=== PATIENT | male | born 1965 | race Caucasian/White ===

== ENCOUNTER 2025-06-20 11:55 | Outpatient (AMB) | payer OTHER, SELFPAY ==
[2025-06-20 13:08] VITALS: BP 130/74; PULSE 83; TEMP 36.9; O2SAT 99; BMI 29.9
--- NOTE | 2025-06-20 13:08 | AM.OFFWIN_ITS ---
Intake Vital Signs 06/20/25 13:08 Height 6 ft 1 in Weight 227 lb BMI 29.9 BP 130/74 Blood Pressure Location Lt brachial Position Sitting Pulse 83 Pulse Source Pulse Oximeter Temp 98.4 F Temp Source Oral Pulse Oximetry (%) 99 Oxygen Delivery Method Room Air Intake Visit Reasons: EP abdominal pain/ consistant diarrhea Intake Note: pt presents with loose diarrhea last night and this morning Allergies No Known Allergies Allergy (Verified 06/20/25 13:13) Do you need a note to return to daycare/school/sports/work: Yes HPI HPI Comments History of Present Illness Details 60 y/o Male patient who presents to the walk in clinic asking for Work Note. Pt did not go to work today due to Abdominal pain associated with Diarrhea since Last night. He has been managing his Symptoms at home with home remedies. Denies Fevers, Chills, Nausea or vomiting. [facility] Medical History (Updated 06/20/25 @ 18:07 by Ame Hui NP) Diarrhea Review of Systems Const All systems reviewed & are unremarkable except as noted in HPI and below Physical Exam Vital Signs: Last Vital Signs Temp 98.4 F 06/20/25 13:08 Pulse 83 06/20/25 13:08 BP 130/74 06/20/25 13:08 Pulse Ox 99 06/20/25 13:08 Oxygen Delivery Method Room Air 06/20/25 13:08 BMI result Body Mass Index 29.9 Const General: no acute distress Nutritional Appearance: obese Orientation/consciousness: patient oriented x3 GI Inspection: Yes Abdominal panniculus present and Yes obesity Palpation (GI): Soft to palpation, not firm, Tenderness to palpation present (GI), no guarding, not rigid and No hepatosplenomegaly present Auscultation: normal bowel sounds Rectal Exam - Male: Yes deferred Neuro General: patient oriented x3, gait normal and moves all extremities Psych Speech and movement: Normal speech and movement present Assessment & Plan Assessment & Plan (1) Diarrhea: Code(s): R19.7 - Diarrhea, unspecified Qualifiers: Diarrhea type: unspecified type Qualified Code(s): R19.7 - Diarrhea, unspecified Plan: Provided patient with Excuse Note for Work Advised to monitor his symptoms at home - If worse toRTC. BLAND diet, and Avoid Spicy and oily foods. May take Imodium OTC Hydrate well with plenty of fluids. Coding Level of Care Code Est Pt Level 4 (27341) Diagnoses Diarrhea, unspecified type R19.7 Diarrhea type: unspecified type Time Spent (min) 20
== END 2025-06-20 14:02 | disposition home or self-care (01) ==
PROVIDERS: Visit Provider Nurse Practitioner Family
DX: R19.7 Diarrhea, unspecified (principal)